=== PATIENT | male | born 1995 | race Caucasian/White ===

== ENCOUNTER 2025-02-20 05:48 | Emergency (ER) | payer MEDICAID, OTHER ==
[~2025-02-20] VITALS: Ht 165.1 cm; Wt 63.6 kg
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
[2025-02-20 07:12] LABS: Hematocrit 37.7 % (41.0-53.0); Hemoglobin 12.2 g/dL (13.5-17.5); Mean Corpuscular Hemoglobin 23.7 pg (28.0-32.0); Mean Corpuscular Volume 73.5 fL (80.0-100.0); Nucleated Red Blood Cells % 0.1 %
[2025-02-20 07:13] LABS: Chloride 105 mmol/L (98-107); Potassium 4.0 mmol/L (3.5-5.1); Sodium 141 mmol/L (136-145)
[2025-02-20 07:14] LABS: Anion Gap 10 (5-15); Carbon Dioxide 26 mmol/L (20-31)
[2025-02-20 07:15] LABS: Calcium 10.3 mg/dL (8.7-10.4)
[2025-02-20 07:20] LABS: BUN/Creatinine Ratio 16.7 (10.0-20.0); Blood Urea Nitrogen 10 mg/dL (9-23)
[2025-02-20 07:22] LABS: Glucose 115 mg/dL (74-106)
[2025-02-20] MEDS: cefTRIAXone 1GM/50ML D5W 50 ML IV ONE (08:04)
[2025-02-20] MEDS: SODIUM CHLORIDE 0.9% 1,000 ML IV ONE ×2 (08:04→09:00)
[2025-02-20 08:23] VITALS: BP 126/84; RESP 14; TEMP 98.4; O2SAT 100
[2025-02-20 08:46] LABS: Alanine Aminotransferase 16 U/L (7-40)
[2025-02-20 08:50] VITALS: PULSE 74
[2025-02-20] MEDS: CLINDAMYCIN 300MG IV 50 ML IV ONE (09:00)
--- NOTE | 2025-02-20 09:08 | DVH ---
CLINICAL INFORMATION: Abdominal pain. TECHNIQUE: Axial CT images of the abdomen and pelvis were obtained without IV contrast. Coronal and s agittal reformatted images were obtained, reviewed, and stored. Evaluation of the parenchymal organs is limited without IV contrast. Evaluation of the bowel and mesentery is limited without oral contras t. All CT scans at this medical facility are performed using dose modulation techniques as appropriat e to a performed exam including the following: Automated exposure control was utilized; adjustment of the MA and/or KV according to patient size; and use of iterative reconstruction technique. CTDIvol = 5.07 mGy DLP = 290.12 mGy-cm COMPARISON: None FINDINGS: Motion artifact limits evaluation. Lung bases: Lung bases are clear. Liver: Grossly unremarkable in its noncontrast enhanced appearance. No abnormal density or focal lesi on identified. Biliary: No calcified gallstones or biliary ductal dilatation. Spleen: Unremarkable. Pancreas: Grossly unremarkable in its noncontrast enhanced appearance. Adrenal glands: Unremarkable. No mass. Kidneys: No hydronephrosis. No renal or ureteral calculi. Aorta/Vascular: Minimal atherosclerotic calcification. No abdominal aortic aneurysm. IVC filter in p lace with the proximal tip near the level of the renal veins. Retroperitoneum: No mass or lymphadenopathy. Bowel/mesentery: Nonspecific mildly distended fluid-filled small bowel loops. No focal transition poi nt identified to suggest small bowel obstruction. Appendix is visualized and appears unremarkable. M oderate stool in the colon. Nonspecific mild circumferential wall thickening of the rectum. Pelvic organs: Grossly unremarkable. Bladder: Suprapubic catheter extends into the bladder. Bladder is partially collapsed and not well e valuated. Abdominal wall: Mildly prominent bilateral inguinal lymph nodes, with the largest measuring up to 2.4 x 1.3 cm, with normal reniform shape and fatty jorge luis, likely reactive. There is fatty atrophy of the thigh musculature bilaterally. Bones: No acute fracture or suspicious intraosseous lesion. Prominent calcification adjacent to the l eft ischial tuberosity. IMPRESSION: 1. Motion limited study. 2. Nonspecific nondilated fluid-filled small bowel loops. Findings may be seen with ileus or enteriti s in the appropriate clinical setting. No small bowel obstruction. 3. Moderate stool in the colon. 4. Suprapubic catheter extends into the bladder. Bladder is underdistended and suboptimally evaluated . 5. Additional findings as detailed above.
--- NOTE | 2025-02-20 09:08 | DVH ---
XY CHEST PORTABLE, HISTORY: sob COMPARISON: None None TECHNICAL DATA: 1 view of the chest was obtained. FINDINGS: Lines and tubes: None Cardiomediastinal silhouette: normal Pulmonary vasculature: normal Lung expansion: normal Lung airspace: normal Lung interstitium: normal Pleura: normal Pneumothorax: no Bones: Unremarkable Other: no IMPRESSION: No acute intrathoracic abnormality.
[2025-02-20 09:40] LABS: Urine Protein, UAD TRACE (Negative)
== END 2025-02-20 10:04 | disposition left against medical advice (07) ==
LOC: EDBD 05:48 → ER 05:48
DX: A41.9 Sepsis, unspecified organism (principal); N39.0 Urinary tract infection, site not specified; R10.30 Lower abdominal pain, unspecified; L03.115 Cellulitis of right lower limb; G82.20 Paraplegia, unspecified; F17.210 Nicotine dependence, cigarettes, uncomplicated
CPT/HCPCS: 36415; 71045; 74176; 80048; 81001; 84450; 84460; 85025; 96365; 96367; 99291; 99292; J0696; J3490; J7030

== ENCOUNTER 2025-02-20 13:10 | Emergency (ER) | payer MEDICAID ==
[~2025-02-20] VITALS: Ht 180.3 cm; Wt 59.0 kg
[2025-02-20 13:29] VITALS: BP 105/66; PULSE 125; RESP 16; TEMP 98.5; O2SAT 99
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
[2025-02-20] MEDS: SODIUM CHLORIDE 0.9% 1,000 ML IV ONE (15:15)
== END 2025-02-20 14:26 | disposition left against medical advice (07) ==
LOC: ER 13:13
DX: N39.0 Urinary tract infection, site not specified (principal); R10.30 Lower abdominal pain, unspecified; F17.210 Nicotine dependence, cigarettes, uncomplicated
CPT/HCPCS: 83605; 87040; 96365; 99284; J1956

== ENCOUNTER 2025-02-24 07:26 | Emergency (ER) | payer MEDICAID ==
[~2025-02-24] VITALS: Ht 180.3 cm; Wt 73.0 kg
[2025-02-24] MEDS ORDERED: ONDANSETRON HCL 4 MG/2 ML VIAL IV ONE (07:45)
[2025-02-24] MEDS ORDERED: MORPHINE SULFATE 4 MG/ML SYR/VIAL IV ONE (07:45)
[2025-02-24] MEDS ORDERED: TETANUS-DIPTH-ACEL PERTUSSIS 0.5ML SYR Tdap IM ONE (07:45)
[2025-02-24] MEDS ORDERED: ceFAZolin 2 GM/D5W50ml 50 ML IV ONE (07:45)
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
[2025-02-24 08:00] VITALS: BP 108/63; PULSE 93; RESP 18; TEMP 98.5; O2SAT 95
== END 2025-02-24 09:10 | disposition left against medical advice (07) ==
LOC: EDBD 07:26 → ER 07:26
DX: T21.26XA Burn of second degree of male genital region, initial encounter (principal); F17.210 Nicotine dependence, cigarettes, uncomplicated; F12.90 Cannabis use, unspecified, uncomplicated; F19.90 Other psychoactive substance use, unspecified, uncomplicated; Z87.440 Personal history of urinary (tract) infections; X08.8XXA Exposure to other specified smoke, fire and flames, initial encounter; Y93.89 Activity, other specified; Y92.89 Other specified places as the place of occurrence of the external cause; Y99.8 Other external cause status; Y90.9 Presence of alcohol in blood, level not specified

== ENCOUNTER 2025-03-08 14:30 | Inpatient (IN) | payer MEDICAID ==
[~2025-03-08] VITALS: Ht 180.3 cm; Wt 59.0 kg
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
--- NOTE | 2025-03-08 17:32 | DVHINCON2 ---
Date of Service if different f: Mar 08, 2025 Time of Service: 17:31 Consultation ([facility]) Vitals Vital Signs Date Time Temp Pulse Resp B/P (MAP) Pulse Ox O2 Delivery O2 Flow Rate FiO2 03/08/25 15:03 98.4 109 18 103/72 (82) 100 98.4 PSYCHIATRY CONSULT BRIEF NOTE MD attempted to understand purpose of consult, informed no RN assigned, MD who ordered consult left. Gave direct contact so new covering MD can call to discuss. No call back. Called ER again to speak to medical charge entry specialist or MD for assista nce seeing patient, no response. Call center alerted. - Primary ED team should re-page call center when ready to provide further information and assist in setting up tele. HERNANDEZ GORMAN MD Mar 08, 2025 17:32
[2025-03-08 19:10] VITALS: PULSE 99; RESP 18; O2SAT 98
--- NOTE | 2025-03-08 23:16 | DVHINCON2 ---
Date of Service if different f: Mar 08, 2025 Time of Service: 23:15 Consult Consult Note PSYCHIATRY ED NEW CONSULT HPI: 30 yo pt with no known PPH presents to ED BIBA for safety, psychiatric stabilization, and possible med initiation in setting of homelessness and passive SI. Psychiatry consulted for safety evaluation and recommendations in context of current presentation Pt reports over past several months experiencing homelessness resulting in passive SI with no plan.intent although found walking into traffic/train tracks. Pt primarily seeking housing resources Currently denies depressed mood, hopelessness, helplessness, isolation, negative thoughts, or anhedonia. Denies anxiety/panic/OCD/PTSD symptoms. Also denies AVH/paranoia/catatonic/perceptual disturbances. Sleep/appetite/energy/conc relatively WNL. Adamantly denies SI/HI. No overt manic, psychotic, MDD, cognitive, dissociative, panic, OCD, PTSD, or somatic symptoms noted Does not have active outpt MH services established at this time. 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 Denies FH of psych hospitalizations, suicide attempts, or completed suicides No acute medical/chronic pain issues although pt ?paraplegic. No hx of seizures/TBI, or recent head injuries, NKDA Denies hx of SIB/SA/PSG although several prior psych hospitalizations for SI, none in several months. Denies history of violence, aggression, or assaultive behaviors. Denies any legal problems. Does not have access to firearms Currently denies SI/HI/AVH. Identifies self as PPF. No acute safety concerns noted during encounter MSE: General Appearance/Behavior: Alert/awake; appears stated age, fair grooming/hygiene; calm/polite and cooperative, fair eye contact, no PMA/PMR Speech: coherent, rrr Thought Process: L/L/GD, bit concrete Thought Content: Abnormal Thoughts/Perceptions: denies dissociative symptoms Homicidality / Violent Thoughts: adamantly denies HI Suicidality: adamantly denies SI Hallucinations: denies AVTH Delusions: denies paranoia, persecutory, or grandiose delusions Obsessions /compulsions: None Judgment/Insight: marginal Mood & Affect: okaY" with mood-congruent, appropriate Orientation: oriented x 3 Attention/Concentration: appears intact Cognition: grossly intact Assessment: 30 yo pt with no known PPH presents to ED BIBA for safety, psychiatric stabilization, and possible med initiation in setting of homelessness and passive SI. Of note, pt does have hx of eloping/leaving AMA from ED Currently denies SI/HI/AVH. Linear and appears future oriented/goal directed in thought No hx of SA/SIB is reassuring. Pt medically cleared Presenting MH symptoms/SI expression appear more secondary to lack of adequate housing/homeless Dpes not presently show any signs of immediate danger to self/others or GD that would necessitate 5150 or involuntary psych admission. However offered voluntary psych hospitalization but pt declined. Also declined further ED observation/reevaluation. No acute safety concerns noted. Acute suicide risk appears nonexistent to relatively low Currently not on any psychotropics. Psychotropic med initiation not clinically indicated at this time Pt primarily needs consultation for housing resources Primary Diagnosis: Adjustment disorder unspecified. TH/meth use disorder, moderate PLAN: Does not warrant involuntary inpatient psychiatric hospitalization or 5150 hold No acute safety concerns Pt can be safely discharged from ED In AM AFTER consultation for housing resources Supportive tx provided Emphasized LIMIT THC/EtOH intake, abstain from IDU, etc Encouraged mindfulness techniques (reading, walking, meditation, journaling, exercise, deep breathing) during times of stress Recommend SW consult to assist pt with post discharge housing assistance per pts request Instructed pt to call/text [phone] or return to ED if MH symptoms worsen or new onset SI/HI upon discharge Pt verbalized understanding and is receptive to above tx plan This case was discussed with ED nurse/provider and all parties in agreement with above tx plan Alexis Lancaster MD Plan discussed with: Patient ALEXIS LANCASTER MD Mar 08, 2025 23:16
[2025-03-09 16:00] VITALS: PULSE 68; RESP 16; O2SAT 98
[2025-03-09 19:37] VITALS: PULSE 78; RESP 20; O2SAT 98
[2025-03-10 08:20] VITALS: PULSE 98; RESP 16; O2SAT 100
[2025-03-10] MEDS ORDERED: ONDANSETRON HCL 4 MG/2 ML VIAL IV PRN (12:15)
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
[2025-03-10 16:16] VITALS: PULSE 72; RESP 18; O2SAT 99
[2025-03-10] MEDS: DOCUSATE SOD 100 MG CAP PO ONE (21:00)
[2025-03-10] MEDS ORDERED: DOCUSATE SOD 100 MG CAP PO SCH (22:00)
[2025-03-11 07:38] VITALS: RESP 18
[2025-03-11] MEDS: ENOXAPARIN SOD 40 MG/0.4 ML SYRINGE SC SCH (08:47)
[2025-03-11] MEDS: DOCUSATE SOD 100 MG CAP PO SCH (08:52)
[2025-03-11 09:52] LABS: Hematocrit 32.8 % (41.0-53.0); Hemoglobin 10.8 g/dL (13.5-17.5)
[2025-03-11 09:55] LABS: Mean Corpuscular Hemoglobin 24.1 pg (28.0-32.0); Mean Corpuscular Volume 73.1 fL (80.0-100.0); Nucleated Red Blood Cells % 0.0 %
[2025-03-11 10:01] LABS: Alanine Aminotransferase 10 U/L (7-40); Albumin 4.0 g/dL (3.2-4.8); Alkaline Phosphatase 84 U/L (46-116); Anion Gap 7 (5-15); BUN/Creatinine Ratio 16.4 (10.0-20.0); Calcium 9.6 mg/dL (8.7-10.4); Carbon Dioxide 28 mmol/L (20-31); Chloride 104 mmol/L (98-107); Potassium 4.2 mmol/L (3.5-5.1); Sodium 139 mmol/L (136-145); Total Protein 7.6 g/dL (5.7-8.2)
[2025-03-11 10:05] LABS: Bilirubin, Total 0.2 mg/dL (0.2-1.0); Blood Urea Nitrogen 9 mg/dL (9-23); Glucose 106 mg/dL (74-106)
[2025-03-11] MEDS ORDERED: HALOPERIDOL LACTATE 5 MG/ML INJ VIAL IM PRN (11:30)
[2025-03-11 11:41] LABS: Triglycerides 79 mg/dL (< 150)
[2025-03-11 11:43] LABS: Cholesterol 117 mg/dL (< 200)
[2025-03-11 11:44] LABS: HDL Cholesterol 28 mg/dL (40-59)
--- NOTE | 2025-03-11 12:31 | DVHINCON2 ---
Date of Service if different f: Mar 11, 2025 Time of Service: 12:29 Consultation (MAQUON) Labs Laboratory Tests Test 03/11/25 08:58 White Blood Count 6.0 10^3/uL (4.4-10.8) Red Blood Count 4.49 10^6/uL (4.5-5.90) Hemoglobin 10.8 g/dL (13.5-17.5) Hematocrit 32.8 % (41.0-53.0) Mean Corpuscular Volume 73.1 fL (80.0-100.0) Mean Corpuscular Hemoglobin 24.1 pg (28.0-32.0) Mean Corpuscular Hemoglobin Concent 32.9 g/dL (32.0-36.0) Red Cell Distribution Width 20.6 % (11.8-14.3) Platelet Count 548 10^3/uL (140-450) Mean Platelet Volume 7.0 fL (6.9-10.8) Neutrophils (%) (Auto) 69.4 % (37.0-80.0) Lymphocytes (%) (Auto) 21.2 % (10.0-50.0) Monocytes (%) (Auto) 5.1 % (0.0-12.0) Eosinophils (%) (Auto) 3.6 % (0.0-7.0) Basophils (%) (Auto) 0.7 % (0.0-2.0) Neutrophils # (Auto) 4.1 10 ^3/uL (1.6-8.6) Lymphocytes # (Auto) 1.3 10 ^3/uL (0.4-5.4) Monocytes # (Auto) 0.3 10 ^3/uL (0-1.3) Eosinophils # (Auto) 0.2 10 ^3/uL (0-0.8) Basophils # (Auto) 0 10 ^3/uL (0-0.2) Nucleated Red Blood Cells 0.0 % Sodium Level 139 mmol/L (136-145) Potassium Level 4.2 mmol/L (3.5-5.1) Chloride Level 104 mmol/L (98-107) Carbon Dioxide Level 28 mmol/L (20-31) Anion Gap 7 (5-15) Blood Urea Nitrogen 9 mg/dL (9-23) Creatinine 0.55 mg/dL (0.700-1.30) Glomerular Filtration Rate Calc 138 mL/min (>90) BUN/Creatinine Ratio 16.4 (10.0-20.0) Serum Glucose 106 mg/dL (74-106) Hemoglobin A1c 5.1 % A1C (<5.7) Calcium Level 9.6 mg/dL (8.7-10.4) Total Bilirubin 0.2 mg/dL (0.2-1.0) Aspartate Amino Transf (AST/SGOT) 13 U/L (13-40) Alanine Aminotransferase (ALT/SGPT) 10 U/L (7-40) Alkaline Phosphatase 84 U/L (46-116) Total Protein 7.6 g/dL (5.7-8.2) Albumin 4.0 g/dL (3.2-4.8) Triglycerides Level 79 mg/dL (< 150) Cholesterol Level 117 mg/dL (< 200) LDL Cholesterol 75 mg/dL (< 100) HDL Cholesterol 28 mg/dL (40-59) Vitals Vital Signs Date Time Temp Pulse Resp B/P (MAP) Pulse Ox O2 Delivery O2 Flow Rate FiO2 03/11/25 07:38 18 Room Air* 0 21 03/10/25 16:16 72 99 03/10/25 08:20 98.0 108/51 (70) 98.0 Current medications Current Medications Medications Dose Ordered Sig/Rowan Route Start Time Stop Time Status Last Admin Dose Admin Ondansetron HCl 4 mg Q4HP PRN IV 03/10/25 12:15 Enoxaparin Sodium 40 mg DAILY SC 03/11/25 10:00 Acetaminophen 650 mg Q6HP PRN PO 03/10/25 12:15 Docusate Sodium 200 mg BID PO 03/11/25 10:00 Haloperidol Lactate 10 mg Q6HPRN PRN IM 03/11/25 11:30 PSYCHIATRY CONSULT BRIEF UP NOTE Attempted to see pt, but pt actively vomiting. Called again, pt now refuses to interview. - Asked RN to cancel page, re-page as soon as pt willing to engage. HERNANDEZ GORMAN MD Mar 11, 2025 12:31
--- NOTE | 2025-03-11 15:31 | DVHPNRES ---
Progress Note Date Seen: Mar 11, 2025 Resident Creating Document: NICOLAS VALENTINO RESIDENT Medical Necessity Reason Pt with a Central, PICC or Fol: Yes The following are medically ne: Fowler Catheter (Suprapubic catheter) Medical Necessity Reason Patient is paraplegic and has urine retention Subjective Review of Systems Ac Funes is a 22-year-old male with past medical history of UTIs and paraplegia who resides at a [facility] and care who presents to the ED for suicidal ideation. 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 Patient also noted to have right big toe wound. Also wound in the right knee. Multiple wounds throughout his body. Patient is unable to answer questions appropriately as he mumbles words to himself. Per RN patient had reportedly accidentally burned his testicles the prior visit. Also noted to have a suprapubic catheter. Patient resting comfortably on the gurney. 03/11/2025 22-year-old male with paraplegia, history of UTIs, substance use (THC, meth), and left partial foot amputation presents with altered mental status and suicidal ideation. Patient resides in a [facility] facility. On todays evaluation, the patient was noted to be actively hearing voices and refused the psychiatric consult and urine sample collection. He continues to refuse multiple medications, including pain meds and DVT prophylaxis. He was previously noted to have wounds and a suprapubic catheter in place. States current suicidal ideation on some occasions but inconsistently reports auditory hallucinations. He adamantly denies SI/HI during one encounter, but later refused interview and reported AVH (auditory hallucinations), demonstrating poor reliability. Patient is clinically euvolemic, afebrile, vital signs stable. Chemistry panel notable for normal renal function, and HbA1c of 5.1. Intake/output suggests adequate urinary output via suprapubic catheter. Review of Systems (ROS) * General: Denies fever, chills, fatigue. Appears alert. * HEENT: No visual disturbances reported. * Cardiac: No chest pain or palpitations. * Pulmonary: No SOB, breathing comfortably on room air. * GI: No nausea or vomiting reported today. Tolerating oral intake. * : Suprapubic catheter in place. No hematuria. Urine collection refused. * Neuro: Alert, grossly oriented 3, paraplegic. * Skin: Multiple healing wounds. * Psych: Hearing voices, mood is variable, denies SI at times, but unreliable. Refuses psychiatric interview. Renal/: UTI Past Medical History Paraplegia Past Surgical History: Other (Left partial foot amputation) Smoke: # pack years ALCOHOL: occassional Drugs: Marijuana, Other (Methamphetamine) Lives: Other Domestic Violence: Neg Objective vital signs Vital Sign Date Time Temp Pulse Resp B/P (MAP) Pulse Ox O2 Delivery O2 Flow Rate FiO2 03/11/25 07:38 18 Room Air* 0 21 03/10/25 16:16 72 99 03/10/25 08:20 98.0 108/51 (70) 98.0 Total Intake and Output 03/10/25 03/10/25 03/11/25 15:00 23:00 07:00 Intake Total 0 ml 250 ml Output Total 1300 ml Balance 0 ml -1050 ml medications Current Medications Medications Dose Ordered Sig/Rowan Route Start Time Stop Time Status Last Admin Dose Admin Ondansetron HCl 4 mg Q4HP PRN IV 03/10/25 12:15 Enoxaparin Sodium 40 mg DAILY SC 03/11/25 10:00 Acetaminophen 650 mg Q6HP PRN PO 03/10/25 12:15 Docusate Sodium 200 mg BID PO 03/11/25 10:00 Haloperidol Lactate 10 mg Q6HPRN PRN IM 03/11/25 11:30 Examination * General: Alert, awake, mildly disheveled, in no acute distress * Vital Signs: T 98.0 F, HR 98 bpm, BP 108/51 mmHg, RR 18, SpO2 100% on RA * HEENT: PERRLA, no signs of trauma * Cardiovascular: RRR, no murmurs, rubs or gallops * Respiratory: Clear to auscultation bilaterally, no distress * GI: Soft, non-tender, normoactive bowel sounds * : Suprapubic catheter present, no signs of active infection or discharge * Neuro: Paraplegic. Alert, answers inconsistently, unreliable historian * Skin: Healing right toe and knee wounds, no active drainage * Psych: Flat affect, poor eye contact, reports hearing voices, variable insight laboratory and microbiology Laboratory Tests 03/11/25 08:58 Test 03/11/25 08:58 Range/Units Serum Glucose 106 74-106 mg/dL Problem List/Assessment/Plan Problem List/Assessment/Plan 1. Acute Encephalopathy / Delirium * Altered mentation, auditory hallucinations, inconsistent affect and cognition. 2. Major depressive disorder, single episode, unspecified * Passive suicidal ideation, mood instability, seeking psychiatric stabilization. 3. Psychosis, unspecified * Auditory hallucinations reported, psychiatric instability with poor insight. 4. Paraplegia, unspecified * Paraplegic from prior trauma, at baseline. 5. Personal history of other infectious diseases * Recurrent UTIs, suprapubic catheter. 6. Left foot amputation, sequela * Partial foot amputation, noted on physical exam. 7. Problems related to living alone * Board and care resident, currently homeless and lacks support system. 8. Cannabis and Methamphetamine Use Disorder, Uncomplicated * Daily THC/meth use, history of substance dependency. 9. Personal history of nicotine dependence * Occasional smoking, behavior change counseling advised. 10. Other abnormalities of gait and mobility * Limited mobility, dependent on care facility. Treatment Plan ([facility]) Neuropsychiatric * Continue 1:1 observation for safety. * Reattempt psychiatry consult when patient is cooperative. * Starting antipsychotic (Haloperidol 10 mg IM Q6h PRN) * Consider mood stabilizer if affect lability worsens. * Safety plan reinforcement; monitor for acute psychosis vs. substance-induced vs. primary psychiatric illness. * Offer nicotine patch for smoking cessation. Infectious Disease / * UA: Unable to collect due to patient refusal; reattempt collection. * Continue monitoring I/O. * Monitor for signs of catheter-associated UTI. * Encourage hydration. * Consider infectious disease consult if fevers/leukocytosis emerge. Dermatology / Wound Care * Wound care team consult to assess healing wounds on toe/knee. * Continue local wound care; assess for signs of infection. Hematology / Nutrition * Albumin 4.0, normal. Continue regular diet. * No anemia. Continue current nutritional intake. Renal / Electrolytes * Cr 0.55, GFR 138: No ALYSSA. * K 4.2, WNL but on lower sidemonitor daily BMP. * Ensure adequate hydration to avoid pre-renal injury. Prophylaxis & Supportive Care * DVT prophylaxis:SCD * PUD prophylaxis WITH PROTONIX * Behavioral: Emphasize mindfulness, stress reduction, limit THC/meth. * Case management/SW for safe discharge placement. Case discussed in detail with the attending physician, including the clinical presentation, diagnostic workup, and comprehensive management plan. Plan discussed with: Patient Dietary Evaluation Review Comments: 1. encourage and monitor PO intake to meet 75% of his needs 2. Jean BID for wound healing 3. Ensure Enlive bid for added protein and energy support 4. Drug rehab upon d/c 5. F/U in 3-5 days Expected Outcomes/Goals: free from durgs and tobacco, healed wounds and gradual wt gains, NICOLAS VALENTINO RESIDENT Mar 11, 2025 15:31
[2025-03-11 15:34] LABS: Urine Protein, UAD 1+ (Negative)
[2025-03-11 15:39] LABS: Amphetamine Screen, Urine Neg (NEGATIVE)
[2025-03-11 15:41] LABS: Barbiturate Scree,Urine Neg (NEGATIVE); Benzodiazephine Screen, Urine Neg (NEGATIVE); Cannabinoid Screen, Urine Pos (NEGATIVE); Cocaine Screen, Urine Neg (NEGATIVE); Opiate Scree,Urine Neg (NEGATIVE); Phencyclidine Screen, Urine Neg (NEGATIVE)
[2025-03-11] MEDS: ACETAMINOPHEN 325 MG TAB PO PRN (17:30)
--- NOTE | 2025-03-11 18:54 | DVHINCON2 ---
Date of Service if different f: Mar 11, 2025 Time of Service: 17:00 Consultation ([place]) Labs Laboratory Tests Test 03/11/25 08:58 03/11/25 14:59 White Blood Count 6.0 10^3/uL (4.4-10.8) Red Blood Count 4.49 10^6/uL (4.5-5.90) Hemoglobin 10.8 g/dL (13.5-17.5) Hematocrit 32.8 % (41.0-53.0) Mean Corpuscular Volume 73.1 fL (80.0-100.0) Mean Corpuscular Hemoglobin 24.1 pg (28.0-32.0) Mean Corpuscular Hemoglobin Concent 32.9 g/dL (32.0-36.0) Red Cell Distribution Width 20.6 % (11.8-14.3) Platelet Count 548 10^3/uL (140-450) Mean Platelet Volume 7.0 fL (6.9-10.8) Neutrophils (%) (Auto) 69.4 % (37.0-80.0) Lymphocytes (%) (Auto) 21.2 % (10.0-50.0) Monocytes (%) (Auto) 5.1 % (0.0-12.0) Eosinophils (%) (Auto) 3.6 % (0.0-7.0) Basophils (%) (Auto) 0.7 % (0.0-2.0) Neutrophils # (Auto) 4.1 10 ^3/uL (1.6-8.6) Lymphocytes # (Auto) 1.3 10 ^3/uL (0.4-5.4) Monocytes # (Auto) 0.3 10 ^3/uL (0-1.3) Eosinophils # (Auto) 0.2 10 ^3/uL (0-0.8) Basophils # (Auto) 0 10 ^3/uL (0-0.2) Nucleated Red Blood Cells 0.0 % Sodium Level 139 mmol/L (136-145) Potassium Level 4.2 mmol/L (3.5-5.1) Chloride Level 104 mmol/L (98-107) Carbon Dioxide Level 28 mmol/L (20-31) Anion Gap 7 (5-15) Blood Urea Nitrogen 9 mg/dL (9-23) Creatinine 0.55 mg/dL (0.700-1.30) Glomerular Filtration Rate Calc 138 mL/min (>90) BUN/Creatinine Ratio 16.4 (10.0-20.0) Serum Glucose 106 mg/dL (74-106) Hemoglobin A1c 5.1 % A1C (<5.7) Calcium Level 9.6 mg/dL (8.7-10.4) Total Bilirubin 0.2 mg/dL (0.2-1.0) Aspartate Amino Transf (AST/SGOT) 13 U/L (13-40) Alanine Aminotransferase (ALT/SGPT) 10 U/L (7-40) Alkaline Phosphatase 84 U/L (46-116) Total Protein 7.6 g/dL (5.7-8.2) Albumin 4.0 g/dL (3.2-4.8) Triglycerides Level 79 mg/dL (< 150) Cholesterol Level 117 mg/dL (< 200) LDL Cholesterol 75 mg/dL (< 100) HDL Cholesterol 28 mg/dL (40-59) Urine Color Light-orange (Yellow) Urine Clarity Ex.turbid (Clear) Urine pH 7.5 (5.0-9.0) Urine Specific [place] 1.019 (1.001-1.035) Urine Protein 1+ (Negative) Urine Ketones Negative (Negative) Urine Blood 2+ /uL (Negative) Urine Nitrite 2+ (Negative) Urine Bilirubin Negative (Negative) Urine Urobilinogen Normal mg/dL (Negative) Urine Leukocyte Esterase 3+ /uL (Negative) Urine RBC 20 /hpf (0 - 3) Urine Microscopic WBC 194 /HPF (0-3) Urine Squamous Epithelial Cells Few /hpf (<5) Urine Triple Phosphate Crystals Few /hpf (None Seen) Urine Bacteria Few /hpf (None Seen) Urine Mucus Few (None Seen) Urine Glucose Normal mg/dL (Normal) Urine Opiates Screen Neg (NEGATIVE) Urine Fentanyl Screen Neg (NEGATIVE) Urine Barbiturates Screen Neg (NEGATIVE) Urine Phencyclidine Screen Neg (NEGATIVE) Urine Amphetamines Screen Neg (NEGATIVE) Urine Benzodiazepines Screen Neg (NEGATIVE) Urine Cocaine Screen Neg (NEGATIVE) Urine Cannabinoids Screen Pos (NEGATIVE) Vitals Vital Signs Date Time Temp Pulse Resp B/P (MAP) Pulse Ox O2 Delivery O2 Flow Rate FiO2 03/11/25 07:38 18 Room Air* 0 21 03/10/25 16:16 72 99 7/24/25 08:20 98.0 108/51 (70) 98.0 Current medications Current Medications Medications Dose Ordered Sig/Rowan Route Start Time Stop Time Status Last Admin Dose Admin Ondansetron HCl 4 mg Q4HP PRN IV 03/10/25 12:15 Enoxaparin Sodium 40 mg DAILY SC 03/11/25 10:00 Acetaminophen 650 mg Q6HP PRN PO 03/10/25 12:15 03/11/25 17:30 650 MG Docusate Sodium 200 mg BID PO 03/11/25 10:00 Haloperidol Lactate 10 mg Q6HPRN PRN IM 03/11/25 11:30 PSYCHIATRY CONSULTATION INITIAL EVALUATION REASON FOR CONSULT: SI HPI:30yo M, homeless, paraplegic, wheelchair bound, admitted following LOC. On interview, pt gives his name, location, date and reason for presenting. Pt says he is in the hospital after going in the street to kill himself. He did it because he was hearing voices. He currently denies auditory hallucination, VH, paranoid ideations, no SI currently. Denies any plan, intention or desire to harm himself. Denies access to harm himself. Says if he leaves the hospital he will be safe. He is quite guarded, does not seem interested in interviewing. Pt says his family is local, but he cannot stay with him. He says he may go to [place] upon discharge. Describes his mood as fine. Per RN, pt has not made any statements threatening self-harm or suicide today. HISTORY: Per Dr. Delvalle 03.08.25 eval - "Does not have active outpt MH services established at this time. Currently not on any psychotropic agents, no prior psych med trials. 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 Single, no children, unemployed, homeless for past several months, limited support system noted (immediate family). Unknown trauma hx. Denies FH of psych hospitalizations, suicide attempts, or completed suicides. No acute medical/chronic pain issues although pt is paraplegic. No hx of seizures/TBI, or recent head injuries, NKDA." MENTAL STATUS EXAMINATION: 30-year-old male who is alert and oriented to person, place, time, and situation. He presents in a guarded manner, engaging minimally with the face burler. He is wheelchair-bound and paraplegic. Speech is limited but coherent and goal-directed. Thought process appears linear; thought content is notable for a recent episode of suicidality reportedly triggered by auditory hallucinations. He currently denies suicidal or homicidal ideation, hallucinations, or delusional beliefs. Mood is described as fine, with a restricted affect. Insight and judgment are limited, though he denies current intent or access to means for self-harm DIFFERENTIAL DIAGNOSIS: Unspecified Schizophrenia Spectrum and Other Psychotic Disorder (F29) Schizoaffective Disorder, depressive type (F25.1) Substance-Induced Psychotic Disorder (F16.959) Adjustment Disorder with Mixed Disturbance of Emotions and Conduct (F43.25) ASSESSMENT: Pt is a chronically homeless, wheelchair-bound individual with a recent reported suicide attempt in the context of auditory hallucinations. While he endorsed suicidal ideation and psychosis upon admission, he now denies all symptoms and appears psychiatrically stable. His current guarded presentation, limited affect, and history of psychosis raise concern for underlying chronic mental illness; however, he is not presently expressing any intent to harm himself or others. He has no access to lethal means, denies current hallucinations, and states he will be safe upon discharge. The primary issue at this time appears to be housing instability and lack of psychiatric follow-up, not acute psychiatric illness. Safety Assessment SI/HI: Denied currently Psychosis: Previously endorsed; not active per current interview Insight/Judgment: Limited but adequate for voluntary discharge Support: Family in area but unavailable for housing Risk Level: Low at present Protective Factors: Denial of current symptoms, willingness to consider housing options, potential for outpatient engagement RECOMMENDATIONS: 1.LEGAL: 5150 hold is not indicated at this time. 2.DISPOSITION: Discharge to halfway or appropriate community setting once medically stable; inpatient psychiatry not indicated at this time. 3.MEDICATIONS: Outpatient psychiatric services for medication management and symptom monitoring. 4. OTHER - Housing services referral for halfway or transitional support - Substance use treatment referrals - Care Coordination: Social work to assist with linkage to community resources and outpatient mental health referrals HERNANDEZ GORMAN MD Mar 11, 2025 18:54
[2025-03-11 20:00] VITALS: RESP 17
[2025-03-12 08:00] VITALS: PULSE 86; RESP 18
[2025-03-12 08:30] VITALS: BP 116/74; PULSE 86; RESP 17; TEMP 98.3; O2SAT 96
[2025-03-12] MEDS: cefTRIAXone 1GM/50ML D5W 50 ML IV SCH (09:00)
[2025-03-12 09:19] VITALS: BP 130/56; PULSE 47; RESP 16; TEMP 98.3; O2SAT 92
[2025-03-12 12:30] VITALS: BP 120/76; PULSE 81; RESP 19; TEMP 98.1; O2SAT 96
[2025-03-12] MEDS ORDERED: CEPH500C PO (12:46)
--- NOTE | 2025-03-12 14:11 | DVHDSRES ---
Discharge Summary Date of Admission Resident Creating Document: SASCHA ESTRADA RESIDENT Mar 10, 2025 at 12:01 Date of Discharge: Mar 12, 2025 Admitting Diagnosis Major depression with suicidal ideations Wounds: Several wounds widespread on his body but all are crusted and noninfected Labs/Diagnostic Data: Laboratory Results Test 03/11/25 14:59 03/11/25 08:58 Urine Color Light-orange (Yellow) Urine Clarity Ex.turbid (Clear) Urine pH 7.5 (5.0-9.0) Urine Specific [place] 1.019 (1.001-1.035) Urine Protein 1+ (Negative) Urine Ketones Negative (Negative) Urine Blood 2+ /uL (Negative) Urine Nitrite 2+ (Negative) Urine Bilirubin Negative (Negative) Urine Urobilinogen Normal mg/dL (Negative) Urine Leukocyte Esterase 3+ /uL (Negative) Urine RBC 20 /hpf (0 - 3) Urine Microscopic WBC 194 /HPF (0-3) Urine Squamous Epithelial Cells Few /hpf (<5) Urine Triple Phosphate Crystals Few /hpf (None Seen) Urine Bacteria Few /hpf (None Seen) Urine Mucus Few (None Seen) Urine Glucose Normal mg/dL (Normal) Urine Opiates Screen Neg (NEGATIVE) Urine Fentanyl Screen Neg (NEGATIVE) Urine Barbiturates Screen Neg (NEGATIVE) Urine Phencyclidine Screen Neg (NEGATIVE) Urine Amphetamines Screen Neg (NEGATIVE) Urine Benzodiazepines Screen Neg (NEGATIVE) Urine Cocaine Screen Neg (NEGATIVE) Urine Cannabinoids Screen Pos (NEGATIVE) White Blood Count 6.0 10^3/uL (4.4-10.8) Red Blood Count 4.49 10^6/uL (4.5-5.90) Hemoglobin 10.8 g/dL (13.5-17.5) Hematocrit 32.8 % (41.0-53.0) Mean Corpuscular Volume 73.1 fL (80.0-100.0) Mean Corpuscular Hemoglobin 24.1 pg (28.0-32.0) Mean Corpuscular Hemoglobin Concent 32.9 g/dL (32.0-36.0) Red Cell Distribution Width 20.6 % (11.8-14.3) Platelet Count 548 10^3/uL (140-450) Mean Platelet Volume 7.0 fL (6.9-10.8) Neutrophils (%) (Auto) 69.4 % (37.0-80.0) Lymphocytes (%) (Auto) 21.2 % (10.0-50.0) Monocytes (%) (Auto) 5.1 % (0.0-12.0) Eosinophils (%) (Auto) 3.6 % (0.0-7.0) Basophils (%) (Auto) 0.7 % (0.0-2.0) Neutrophils # (Auto) 4.1 10 ^3/uL (1.6-8.6) Lymphocytes # (Auto) 1.3 10 ^3/uL (0.4-5.4) Monocytes # (Auto) 0.3 10 ^3/uL (0-1.3) Eosinophils # (Auto) 0.2 10 ^3/uL (0-0.8) Basophils # (Auto) 0 10 ^3/uL (0-0.2) Nucleated Red Blood Cells 0.0 % Sodium Level 139 mmol/L (136-145) Potassium Level 4.2 mmol/L (3.5-5.1) Chloride Level 104 mmol/L (98-107) Carbon Dioxide Level 28 mmol/L (20-31) Anion Gap 7 (5-15) Blood Urea Nitrogen 9 mg/dL (9-23) Creatinine 0.55 mg/dL (0.700-1.30) Glomerular Filtration Rate Calc 138 mL/min (>90) BUN/Creatinine Ratio 16.4 (10.0-20.0) Serum Glucose 106 mg/dL (74-106) Hemoglobin A1c 5.1 % A1C (<5.7) Calcium Level 9.6 mg/dL (8.7-10.4) Total Bilirubin 0.2 mg/dL (0.2-1.0) Aspartate Amino Transferase (AST) 13 U/L (13-40) Alanine Aminotransferase (ALT) 10 U/L (7-40) Alkaline Phosphatase 84 U/L (46-116) Total Protein 7.6 g/dL (5.7-8.2) Albumin 4.0 g/dL (3.2-4.8) Triglycerides Level 79 mg/dL (< 150) Cholesterol Level 117 mg/dL (< 200) LDL Cholesterol 75 mg/dL (< 100) HDL Cholesterol 28 mg/dL (40-59) Other Laboratory Tests 03/11/25 08:58 Brief Hx & Hospital Course: This is a 22-year-old male with past medical history of UTIs and paraplegia who resides at a [facility] who presents to the ED for suicidal ideation. 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 Patient also noted to have right big toe wound. Also wound in the right knee. Multiple wounds throughout his body. Patient was unable to provide proper answer to questions since the patient is on and off speaking nonsense but occasionally understands and answers appropriately. Patient also has a suprapubic catheter placed but was refusing throughout hospitalization urinalysis and urine culture. Initially the patient was refusing tele psych consult but then accepted, tele psych assured that the patient does not need further medications or hold in the hospital at this time. Workforce Advisor was consulted for communicating with next of skin and prior [facility] care. Patient will be going back to [facility]. Patient is hemodynamically stable at this time. We discharge the patient on cephalexin 500 mg b.i.d. for seven days for UTI. Discharge plan -follow-up with psychiatrist as an outpatient -in-hospital psychiatrist stated no need of medications at this time -patient going back to [facility] -start cephalexin 500 mg b.i.d. for seven days Consults/Reason for consult Tele psych evaluation Operations or Procedures none Condition at Discharge: Stable Final Diagnosis/Problems List Acute psychosis, unspecified Possible acute toxic encephalopathy Major depressive disorder with suicidal ideations, resolved Partial left foot amputation Polysubstance abuse Discharge Disposition: Home Discharge Instruct/Medications Diet: Regular Activity: No Restrictions, As Tolerated Follow Up/Referral: Follow-up with his PCP in one week Follow-up with psychiatrist as an outpatient Medications: Continue home medications Start cephalexin 500 mg b.i.d. for seven days. Scheduled Cephalexin Monohydrate (Cephalexin), 1 CAP PO BID Discharge Statement: "Patient was advised to return to the ER or call 911 if any headaches, dizziness, shortness of breath, chest pain, abdominal pain, bleeding, fevers, or worsening of medical condition. Patient was counseled about treatment plan, medications, possible side effects, patientverbalized understanding. All questions were answered to the best of my ability. This discharge took greater then 30 minutes in planning, reviewing documentation, counseling the patient, and discussing with other team members." ASSESSMENT ASSESSMENT Assessment Acute psychosis, unspecified Possible acute toxic encephalopathy Major depressive disorder with suicidal ideations, resolved Partial left foot amputation Polysubstance abuse SASCHA ESTRADA RESIDENT Mar 12, 2025 14:11
[2025-03-12 14:30] VITALS: BP 121/76; PULSE 86; RESP 19; TEMP 98.1; O2SAT 96
== END 2025-03-12 17:20 | disposition home or self-care (01) | DRG 52 ==
LOC: ER 14:30 → EDBD 14:30 → OVERFLOW 03-10 12:01 → EAST 03-10 15:57
PROVIDERS: ADMIT Student in an Organized Health Care Education/Training Program; ATTEND Student in an Organized Health Care Education/Training Program
DX: G92.8 Other toxic encephalopathy (principal); G82.20 Paraplegia, unspecified; R45.851 Suicidal ideations; F32.9 Major depressive disorder, single episode, unspecified; F19.10 Other psychoactive substance abuse, uncomplicated; F17.210 Nicotine dependence, cigarettes, uncomplicated; F15.90 Other stimulant use, unspecified, uncomplicated; F12.90 Cannabis use, unspecified, uncomplicated; Z59.00 Homelessness unspecified; Z87.440 Personal history of urinary (tract) infections; Z99.3 Dependence on wheelchair; Z89.432 Acquired absence of left foot; Z79.899 Other long term (current) drug therapy
CPT/HCPCS: 36415; 80053; 80061; 80307; 81001; 83036; 85025; 87086; G0378